=== PATIENT | male | born 1955 | race Caucasian/White ===

== ENCOUNTER 2019-04-13 20:21 | Emergency (ER) | payer SELFPAY ==
[~2019-04-13] VITALS: Ht 188 cm; Wt 136.1 kg
[~2019-04-13 20:21] MED LIST: Percocet 5-3251 EACH PO
== END 2019-04-13 21:36 | disposition home or self-care (01) ==
LOC: ER 20:21
DX: S61.452A Open bite of left hand, initial encounter (principal); L03.114 Cellulitis of left upper limb; Z87.891 Personal history of nicotine dependence; W55.01XA Bitten by cat, initial encounter
CPT/HCPCS: 96365; J2543

== ENCOUNTER 2019-04-14 02:41 | Emergency (ER) | payer SELFPAY ==
[~2019-04-14] VITALS: Ht 188 cm; Wt 136.1 kg
== END 2019-04-14 03:43 | disposition home or self-care (01) ==
LOC: ER 02:41
DX: S61.452A Open bite of left hand, initial encounter (principal); Z87.891 Personal history of nicotine dependence; W55.01XA Bitten by cat, initial encounter
CPT/HCPCS: 96365; J2543

== ENCOUNTER 2019-04-14 08:46 | Emergency (ER) | payer SELFPAY ==
[~2019-04-14] VITALS: Ht 188 cm; Wt 136.1 kg
== END 2019-04-14 09:45 ==
LOC: ER 08:46
DX: S61.452A Open bite of left hand, initial encounter (principal); L03.114 Cellulitis of left upper limb; Z87.891 Personal history of nicotine dependence; W55.01XA Bitten by cat, initial encounter
CPT/HCPCS: 96365; J2543

== ENCOUNTER 2019-05-06 10:25 | Inpatient (IN) | payer BC ==
[~2019-05-06] VITALS: Ht 188 cm; Wt 143.9 kg
[2019-05-06 12:13] LABS: Influenza A Negative (NEGATIVE); Influenza B Negative (NEGATIVE)
[2019-05-06 12:22] LABS: BASOPHILS ABSOLUTE AUTO 0.03 K/mm3 (0.00-0.23); BASOPHILS PERCENT AUTO 0 % (0-2); EOSINOPHILS PERCENT AUTO 0 % (0-6); Hematocrit 39.4 % (37.0-53.0); Hemoglobin 13.5 g/dL (13.5-17.5); IMMATURE GRAN ABSOLUTE AUTO 0.05 K/mm3 (0.00-0.10); IMMATURE GRAN PERCENT AUTO 0 % (0-1); LYMPHOCYTES ABSOLUTE AUTO 0.58 K/mm3 (0.84-5.20); LYMPHOCYTES PERCENT AUTO 5 % (21-46); MONOCYTES ABSOLUTE AUTO 1.01 K/mm3 (0.16-1.47); MONOCYTES PERCENT AUTO 8 % (4-13); Mean Corpuscular HGB Conc 34.3 g/dL (31.5-36.5); Mean Corpuscular Volume 85 fL (80-100); NEUTROPHILS ABSOLUTE AUTO 11.24 K/mm3 (1.96-9.15); NEUTROPHILS PERCENT AUTO 87 % (41-73); Platelet Count 137 K/mm3 (150-400); RDW Coefficient Variation 12.7 % (11.7-14.2); RDW Standard Deviation 39.2 fL (35.1-46.3); Red Blood Cell Count 4.65 M/mm3 (4.30-5.90); White Blood Cell Count 12.91 K/mm3 (4.00-11.30)
[2019-05-06 12:42] LABS: Alanine Aminotransfer (ALT/SGP 48 U/L (12-78); Albumin, Blood 3.3 g/dL (3.4-5.0); Albumin/Globulin Ratio 0.7 (0.8-1.8); Alk Phos 61 U/L (50-136); Anion Gap 9 mmol/L (6-16); Aspartate Aminotrans (AST/SGOT 65 U/L (12-37); Bilirubin, Total 0.9 mg/dL (0.1-1.0); Blood Urea Nitrogen 22 mg/dL (8-24); Bun/Creatinine Ratio 25.3 (12.0-20.0); CO2, Blood 23 mmol/L (21-32); Calcium, Blood 8.3 mg/dL (8.5-10.1); Chloride, Blood 95 mmol/L (98-108); Creatinine, Blood 0.87 mg/dL (0.60-1.20); Globulin, Blood 4.7 g/dL (2.2-4.0); Glomerular Filtration Rate >60 (60-); Glucose, Blood 248 mg/dL (70-99); Potassium, Blood 3.7 mmol/L (3.5-5.5); Sodium, Blood 127 mmol/L (136-145)
[2019-05-06] MEDS ORDERED: LOSA50 PO (12:46)
[2019-05-06] MEDS ORDERED: ZYRTEC10 M2 PO (12:46)
[2019-05-06] MEDS ORDERED: Cardura8 MG PO (13:53)
[2019-05-06] MEDS ORDERED: HYDCHL25 PO (13:54)
[2019-05-06] MEDS ORDERED: LOSARTAN POTAS100 MG PO (13:54)
[2019-05-06] MEDS ORDERED: Sudogest60 MG PO (13:54)
[2019-05-06] MEDS ORDERED: ROSU5 PO (13:54)
[2019-05-06] MEDS ORDERED: GABA300 PO (13:55)
[2019-05-06] MEDS ORDERED: JANUMET XR 50-1 EACH PO (13:56)
[2019-05-06] MEDS ORDERED: Flonase 0.05% N16 GM (13:56)
[2019-05-06 14:25] LABS: Source, Urine Clean Catch
[2019-05-06 14:31] LABS: Bilirubin, Urine Neg (Neg); Blood, Urine 5+ (Neg); Glucose Qualitative, Urine 3+ (Neg); Ketones, Urine 1+ (Neg); Leukocyte Esterase, Urine Neg (Neg); Nitrite, Urine Neg (Neg); Protein, Urine 4+ (Neg); Urobilinogen, Urine 1+ (Normal)
[2019-05-06 14:33] LABS: Appearance, Urine Clear (Clear); Color, Urine Orange (P-Yellow)
[2019-05-06 14:38] LABS: Bacteria Few /hpf; Mucus Light (0-Heavy); Squamous Epithelial Cells Rare /hpf (Few); White Blood Cells, Urine 0-2 /hpf (0-5)
--- NOTE | 2019-05-06 19:35 | NUR ---
Bolus on NS in, linen changed. Pt confused, talking about hourly associate, after CNAs changed his linen. Train of thought appears slow and broken. IVF of NS continued at 150 ml/hr. Redirected to use call light. HOB elevated. Will monitor. Bed alarm on.
--- NOTE | 2019-05-06 22:39 | NUR ---
PT BECAME ANXIOUS AND PULLED IV OUT WHILE MOVING ABOUT IN BED, STATED NEEDED TO VOID, LINEN CHANGED. ANOTHER NURSE IS IN PROCESS OF OBTAINING ANOTHER IV, I MADE 2 UNSUCCCESSFUL ATTEMPTS. SKIN QUITE CALLOUSED. CALL LIGHT IN REACH.
[2019-05-07 05:05] LABS: Hematocrit 37.1 % (37.0-53.0); Hemoglobin 12.3 g/dL (13.5-17.5); Mean Corpuscular HGB 28.7 pg (26.0-34.0); Mean Corpuscular HGB Conc 33.2 g/dL (31.5-36.5); Mean Corpuscular Volume 87 fL (80-100); Mean Platelet Volume 10.2 fL (9.1-12.4); Platelet Count 117 K/mm3 (150-400); RDW Standard Deviation 41.1 fL (35.1-46.3); Red Blood Cell Count 4.28 M/mm3 (4.30-5.90); White Blood Cell Count 10.36 K/mm3 (4.00-11.30)
[2019-05-07 05:25] LABS: Anion Gap 9 mmol/L (6-16); Blood Urea Nitrogen 18 mg/dL (8-24); Bun/Creatinine Ratio 25.8 (12.0-20.0); CO2, Blood 22 mmol/L (21-32); Calcium, Blood 7.8 mg/dL (8.5-10.1); Chloride, Blood 99 mmol/L (98-108); Glomerular Filtration Rate >60 (60-); Glucose, Blood 159 mg/dL (70-99); Potassium, Blood 3.8 mmol/L (3.5-5.5); Sodium, Blood 130 mmol/L (136-145)
--- NOTE | 2019-05-07 07:00 | NUR ---
ASSUMED CARE OF PT- BEDSIDE REPORT COMPLETED WITH NIGHT RN JADON. PER REPORT PT HAS BEEN INCREASINGLY CONFUSED T/O THE NIGHT GETTING HIS URINAL AND DRINK CUP CONFUSED AND SPILLING BOTH, DIARRHEA MESS FROM BED TO TOILET MULTIPLE TIMES PER HOUR. PT HAS HAD LOOSE STOOLS SINCE TUESDAY. WILL SPEAK WITH DR ABOUT GI PANEL. PT ALERT TO SELF SEEMS A LITTLE SLOW TO RESPOND. FAMILY INVOLVED IN CARE AND CALLS TO CHECK ON PT FREQUENTLY. PT SET OFF BED ALARM JUST PRIOR TO BEDSIDE REPORT AND IS CURRENTLY IN THE BATHROOM, HOUSEKEEPING HAS BEEN REQUESTED FOR CLEANUP. PER REPORT PT ACTUALLY DRANK HIS OWN URINE LAST NIGHT. PT BASELING YET TO BE DETERMINE, IT IS THOUGHT THAT HE IS USUALLY ALERT AND ORIENTED X4.
--- NOTE | 2019-05-07 08:01 | NUR ---
Pt awake at intervals, some attempts to get out of bed without calling nurse first. Incont of urine and feces. Some attempts to get to bathroom to void. Dropped water cup on floor x 2. Urinated in watercup at one time, said he was in a hurry. Later INVOICING SPECIALIST voiced pt had drank his urine after voiding. Nurse replaced all water cups and gave specific instructions to pt of which container to use to void in (urinal) and which container to drink from - the water cup with a straw in it. Currently pt sleeping quietly. AM nurse to follow up with pt. Call light in reach.
[2019-05-07 14:32] LABS: Adenovirus F 40/41 Not Detected (NOT DETECT); Astrovirus Not Detected (NOT DETECT); Campylobacter Sp Not Detected (NOT DETECT); Cryptosporidium Not Detected (NOT DETECT); Cyclospora Cayetanensis Not Detected (NOT DETECT); E. Coli O157 Not Detected (NOT DETECT); Entamoeba Histolytica Not Detected (NOT DETECT); Enteroaggregative E. coli-EAEC Not Detected (NOT DETECT); Enteropathogenic E. coli-EPEC Not Detected (NOT DETECT); Enterotoxigenic E. coli-ETEC Not Detected (NOT DETECT); Giardia Lamblia Not Detected (NOT DETECT); Norovirus GI/GII Not Detected (NOT DETECT); Plesiomonas Shigelloides Not Detected (NOT DETECT); Rotavirus A Not Detected (NOT DETECT); Salmonella Sp Not Detected (NOT DETECT); Sapovirus Not Detected (NOT DETECT); Shiga Toxin-prod E. coli-STEC Not Detected (NOT DETECT); Shigella/Enteroin E. coli-EIEC Not Detected (NOT DETECT); Vibrio Cholerae Not Detected (NOT DETECT); Vibrio Sp Not Detected (NOT DETECT); Yersinia Enterocolitica Not Detected (NOT DETECT)
--- NOTE | 2019-05-07 17:26 | NUR ---
CALLED DR MORA- PT IVF WAS CONTINUED THIS AFTERNOON PER DR MORA, A RATE CHANGE WAS DISCUSSED BUT NEVER ORDERED. CALLED TO CLARIFY NEW ORDER RECIEVED FOR 1L NS AT 125ML/HR THEN SL THE PT IV.
--- NOTE | 2019-05-07 18:26 | NUR ---
SHIFT SUMMARY- PT ALERT AND ORIENTED TO SELF, FAMILY AND SITUATION. HE APPEARS TO BE MORE ORIENTED THIS EVENING SINCE FLUIDS WERE RESUMED. LOOSE STOOLS HAVE SLOWED TO ONE EVERY COUPLE OF HOURS. PT HAS USED HIS CALL LIGHT THIS EVENING. DAUGHTER IS AT THE BEDSIDE. PT GAVE VERBAL CONSENT FOR STAFF TO SPEAK WITH HIS DAUGHTER AND SISTER IN DEPTH ABOUT HIS HEALTHCARE. PT DAUGHTER HELPED DETERMINE PT BASELINE ORIENTATION. PT APPARENTLY RUNS A BUISINESS AND IS COMPLETELY ALERT AND ORIENTED AT BASELINE, PER HIS DAUGHTER PT IS VERY QUICK WITTED AND RESPONDS QUICKLY. TODAY HIS RESPONSES HAVE BEEN DELAYED OR SLOW TO RESPOND AND HE SEEMS TO HAVE DIFFICULTY FINDING WORDS. SPOKE TO DR MORA ABOUT THIS AND A HEAD CT WAS ORDERED, RESULTS ARE IN. PT GI PANEL SAMPLE WAS SENT OFF THIS MORNING, CAME BACK NEGATIVE. PT ISOLATION DC'D.
--- NOTE | 2019-05-07 19:45 | NUR ---
BRENDA IS RESTING IN BED WITH CPAP ON. STATES HE IS VERY TIRED AND WORN OUT. DENIES ANY CHEST PAIN OR OTHER CARDIAC SYMPTOMS. SATS CURRENTLY IN LOW 90'S ON CPAP. IV INFUSING WITH NO DIFFICULTY. LUNG SOUNDS DIMINISHED THROUGHOUT. WILL CONTINUE TO MONITOR, CALL LIGHT IN REACH.
--- NOTE | 2019-05-07 20:55 | NUR ---
PATIENT UP TO COMMODE, HAD SMEAR OF BM. CHANGED ATTENDS, URINAL EMPTIED. LINEN CHANGED. ASSISTED BACK TO BED.
--- NOTE | 2019-05-08 00:21 | NUR ---
ASSISTED GRAPHICS PROGRAMMER IN REPOSITIONING OF THE PATIENT. HE STATES HE IS DOING OK, DENIES ANY NEEDS AT THIS TIME. CALL LIGHT IN REACH.
--- NOTE | 2019-05-08 03:25 | NUR ---
NEW IV STARTED IN THE RIGHT HAND 20 GAUGE, FLUSHED GOOD. SL AND WRAPPED WITH COBAN, INSTRUCTED THE PATIENT TO LEAVE IN NOT TO PULL OUT.
--- NOTE | 2019-05-08 06:09 | NUR ---
SHIFT SUMMARY: BRENDA HAS IMPROVED IN COGNITION THIS SHIFT. WAS ABLE TO UNDERSTAND DIRECTIONS AND FOLLOW THEM. HE DID HAVE A PERIOD OF MISUNDERSTANDING EARLY THIS AM WHERE HE GOT UP AND PULLED OUT HIS IV THINKING THAT HE WAS DONE WITH IT. I TOLD HIM HE WAS DONE WITH HIS FLUIDS, HE THOUGHT HIS IV COULD COME OUT THEN. NEW ONE WAS PLACED AND HE KEPT THAT ONE IN. HE HAS BEEN GETTING TO THE BATHROOM INDEPENDANTLY AND ABLE TO GET BACK TO BED. HE TOLERATED THE CPAP OFF AND ON THIS SHIFT. HE EVEN STATED THAT HE WILL BE GOING HOME TODAY. INSTRUCTED HIM THAT IT DEPENDS ON HIS STATUS AND WHAT THE DOCTORS SAY. SATS HAVE REMAINED IN THE HIGH 90'S 90% OF THIS SHIFT WITH ONLY OCCATIONAL DROPS. HE HAD A COUPLE OF SOFT STOOLS, NO LOOSE. NO OTHER CHANGES TO REPORT. WILL REPORT TO DAY SHIFT RN.
[2019-05-08 06:25] LABS: Anion Gap 8 mmol/L (6-16); Blood Urea Nitrogen 15 mg/dL (8-24); Bun/Creatinine Ratio 20.1 (12.0-20.0); CO2, Blood 23 mmol/L (21-32); Calcium, Blood 7.8 mg/dL (8.5-10.1); Chloride, Blood 101 mmol/L (98-108); Creatinine, Blood 0.75 mg/dL (0.60-1.20); Glomerular Filtration Rate >60 (60-); Glucose, Blood 156 mg/dL (70-99); Potassium, Blood 3.7 mmol/L (3.5-5.5); Sodium, Blood 132 mmol/L (136-145)
[2019-05-08] MEDS ORDERED: LEVO750 PO (12:21)
[2019-05-08] MEDS ORDERED: AMLO5 PO (12:21)
[2019-05-08] MEDS ORDERED: Vsl#3 Capsule1 EACH PO (12:21)
--- NOTE | 2019-05-08 13:29 | NUR ---
PATIENT DISCHARGE: PATIENT DISCHARGED TO HOME THIS SHIFT. MEDICATION RECONCILIATION COMPLETED; MED LIST FAXED TO [facility] IN [place]. DISCHARGE EDUCATION COMPLETED WITH PATIENT AND FAMILY. PATIENT TRANSPORTED TO EXIT BY [facility] STAFF WITH WHEELCHAIR AT 1309. PATIENT DEPARTED [facility] VIA PRIVATE AUTO.
== END 2019-05-08 13:09 | disposition home or self-care (01) | DRG 871 ==
LOC: ER 10:25 → MEDS 10:26 → ENPENDDIS 05-08 11:00 → MEDS 05-08 13:09
PROVIDERS: Emergency Medicine; ADMIT Internal Medicine
DX: A41.9 Sepsis, unspecified organism (principal); J18.9 Pneumonia, unspecified organism; G93.41 Metabolic encephalopathy; E87.1 Hypo-osmolality and hyponatremia; E87.2 Acidosis; R65.20 Severe sepsis without septic shock; I10 Essential (primary) hypertension; E11.9 Type 2 diabetes mellitus without complications; E86.0 Dehydration; R19.7 Diarrhea, unspecified; Z87.891 Personal history of nicotine dependence; Z79.84 Long term (current) use of oral hypoglycemic drugs; Z79.51 Long term (current) use of inhaled steroids; Z79.899 Other long term (current) drug therapy
CPT/HCPCS: 0097U; 36415; 70450; 71045; 74177; 80048; 80053; 81001; 82947; 83605; 83690; 84145; 85025; 85027; 87040; 87804; 94660; 94762; 96361; 96365-59; 96367; 96372; 99285-25; A9270; G0378; J0456; J0696; J1650; J7030; J7050; Q9967

== ENCOUNTER 2021-11-09 12:19 | Emergency (ER) | payer MEDICARE, OTHER ==
[~2021-11-09] VITALS: Ht 188 cm; Wt 106.6 kg
[~2021-11-09 12:19] MED LIST changes: +ACIDOPHILUS1 EAC1 PO; +AMLO5 PO; +AMOX500 PO; +BASAGLAR K100 UNIT/1 SC; +Cardura8 MG PO; +DOCU100 PO; +Flonase 0.05% N16 GM; +GABA300 PO; +HYDCHL12.5 PO; +HYDCHL25 PO; +HYDR10; +JANUMET XR 50-1 EACH PO; +LEVO750 PO; +LOSA50 PO; +LOSARTAN POTAS100 MG PO; +METF500 PO; +MIRALAX17 GM PO; +Pyridium200 MG PO; +ROSU5 PO; +ROXICODONE5 MG PO; +Sudogest60 MG PO; +TAMS.4ER PO; +Vsl#3 Capsule1 EACH PO; +ZYRTEC10 M2 PO
[2021-11-09 13:26] LABS: BASOPHILS ABSOLUTE AUTO 0.04 K/mm3 (0.00-0.23); BASOPHILS PERCENT AUTO 1 % (0-2); EOSINOPHILS ABSOLUTE AUTO 0.33 K/mm3 (0.00-0.68); EOSINOPHILS PERCENT AUTO 4 % (0-6); Hematocrit 36.4 % (37.0-53.0); Hemoglobin 11.8 g/dL (13.5-17.5); IMMATURE GRAN ABSOLUTE AUTO 0.01 K/mm3 (0.00-0.10); IMMATURE GRAN PERCENT AUTO 0 % (0-1); LYMPHOCYTES ABSOLUTE AUTO 1.32 K/mm3 (0.84-5.20); LYMPHOCYTES PERCENT AUTO 17 % (21-46); MONOCYTES ABSOLUTE AUTO 0.53 K/mm3 (0.16-1.47); MONOCYTES PERCENT AUTO 7 % (4-13); Mean Corpuscular HGB 27.4 pg (26.0-34.0); Mean Corpuscular HGB Conc 32.4 g/dL (31.5-36.5); Mean Corpuscular Volume 85 fL (80-100); Mean Platelet Volume 9.8 fL (9.1-12.4); NEUTROPHILS ABSOLUTE AUTO 5.42 K/mm3 (1.96-9.15); NEUTROPHILS PERCENT AUTO 71 % (41-73); Platelet Count 224 K/mm3 (150-400); RDW Coefficient Variation 14.2 % (11.7-14.2); RDW Standard Deviation 43.7 fL (35.1-46.3); Red Blood Cell Count 4.31 M/mm3 (4.30-5.90); White Blood Cell Count 7.65 K/mm3 (4.00-11.30)
[2021-11-09 13:39] LABS: Albumin, Blood 4.1 g/dL (3.4-5.0); Albumin/Globulin Ratio 0.9 (0.8-1.8); Bilirubin, Total 0.3 mg/dL (0.1-1.0); Bun/Creatinine Ratio 25.8 (12.0-20.0); Calcium, Blood 9.6 mg/dL (8.5-10.1); Creatinine, Blood 0.7 mg/dL (0.60-1.20); Globulin, Blood 4.4 g/dL (2.2-4.0); Potassium, Blood 3.9 mmol/L (3.5-5.5); Total Protein, Blood 8.5 g/dL (6.4-8.2)
[2021-11-09] MEDS ORDERED: AMLODIPINE BES2.5 MG PO (17:21)
[2021-11-09] MEDS ORDERED: HYDMOR4 PO (19:29)
[2021-11-09] MEDS ORDERED: MASOPHEN500 MG PO (19:29)
== END 2021-11-09 19:46 | disposition home or self-care (01) ==
LOC: ER 12:19
PROVIDERS: Student in an Organized Health Care Education/Training Program
DX: T84.021A Dislocation of internal left hip prosthesis, initial encounter (principal); N40.0 Benign prostatic hyperplasia without lower urinary tract symptoms; E11.9 Type 2 diabetes mellitus without complications; I10 Essential (primary) hypertension; Y83.8 Other surgical procedures as the cause of abnormal reaction of the patient, or of later complication, without mention of misadventure at the time of the procedure; Z79.899 Other long term (current) drug therapy; Z79.4 Long term (current) use of insulin
CPT/HCPCS: 36415; 72170; 73501; 80053; 85025; A9270; J0330; J1170; J2704; J7030

== ENCOUNTER 2021-11-11 11:29 | Emergency (ER) | payer MEDICARE, OTHER ==
[~2021-11-11] VITALS: Ht 188 cm; Wt 106.6 kg
[~2021-11-11 11:29] MED LIST changes: +AMLODIPINE BES2.5 MG PO; +HYDMOR4 PO; +MASOPHEN500 MG PO
[2021-11-11] MEDS ORDERED: HYDMOR4 PO (15:26)
[2021-11-12] MEDS ORDERED: HYDR1TAB94 PO (16:13)
== END 2021-11-11 16:18 | disposition home or self-care (01) ==
LOC: ER 11:29
DX: T84.021A Dislocation of internal left hip prosthesis, initial encounter (principal); I10 Essential (primary) hypertension; E11.9 Type 2 diabetes mellitus without complications; Y83.8 Other surgical procedures as the cause of abnormal reaction of the patient, or of later complication, without mention of misadventure at the time of the procedure; Z79.899 Other long term (current) drug therapy; Z79.84 Long term (current) use of oral hypoglycemic drugs
CPT/HCPCS: 36415; 73501; J1170; J2704; J7030

== ENCOUNTER 2021-11-14 13:30 | Emergency (ER) | payer MEDICARE, OTHER ==
[~2021-11-14] VITALS: Ht 188 cm; Wt 106.6 kg
[~2021-11-14 13:30] MED LIST changes: +HYDR1TAB94 PO
== END 2021-11-14 18:00 | disposition home or self-care (01) ==
LOC: ER 13:30
DX: T84.021A Dislocation of internal left hip prosthesis, initial encounter (principal); E11.9 Type 2 diabetes mellitus without complications; I10 Essential (primary) hypertension; Z79.84 Long term (current) use of oral hypoglycemic drugs; Z79.899 Other long term (current) drug therapy; W18.11XA Fall from or off toilet without subsequent striking against object, initial encounter
CPT/HCPCS: 36415; 72170; J1170; J1885; J2704; J7030

== ENCOUNTER 2021-12-12 09:29 | Emergency (ER) | payer MEDICARE, OTHER ==
[~2021-12-12] VITALS: Ht 188 cm; Wt 103.9 kg
[2021-12-12] MEDS ORDERED: CEPH500 PO (13:47)
== END 2021-12-12 14:03 | disposition home or self-care (01) ==
LOC: ER 09:29
DX: M25.552 Pain in left hip (principal); Z96.642 Presence of left artificial hip joint
CPT/HCPCS: 73502